=== PATIENT | female | born 1945 | race Caucasian/White ===

== ENCOUNTER 2018-05-15 17:32 | Emergency (ER) | payer MEDICARE, OTHER ==
[~2018-05-15] VITALS: Ht 152.4 cm; Wt 68.0 kg
[2018-05-15 17:43] VITALS: Ht 152.4 cm; Wt 68.0 kg
[2018-05-15 18:35] LABS: BASOPHIL % 0.4 % (0-2); PLATELET COUNT 209 x10^3mcL (130-400); RED CELL DISTRIBUTION WIDTH 13.6 % (11.5-14.5)
[2018-05-15 18:46] LABS: CALCIUM 8.4 mg/dL (8.5-10.1); CARBON DIOXIDE 28.6 mmol/L (21-32); CHLORIDE SERUM 105 mmol/L (98-107); CREATININE SERUM 0.7 mg/dL (0.6-1.0); GFR1 > 60 mL/min; GLUCOSE SERUM 106 mg/dL (74-106); POTASSIUM SERUM 3.4 mmol/L (3.5-5.1); SODIUM SERUM 140 mmol/L (136-145)
[2018-05-15 18:51] LABS: ALKALINE PHOSPHATASE 107 U/L (46-116); ALT/SGPT 22 U/L (14-59); AST/SGOT 17 U/L (15-37); BILIRUBIN TOTAL 0.1 mg/dL (0.20-1.00); CHOLESTEROL 157 mg/dL (<200); HDL CHOLESTEROL 47 mg/dL (40-60); LIPASE 298 IU/L (73-393); TOTAL PROTEIN, SERUM 7.6 g/dL (6.4-8.2)
[2018-05-15 19:04] LABS: ALBUMIN 3.2 g/dL (3.4-5.0)
[2018-05-15 19:52] LABS: UA SPECIFIC GRAVITY <=1.005 (1.005-1.035); microscopic required? YES; urine erythrocyte TRACE (NEGATIVE)
[2018-05-15 21:33] VITALS: BP 128/73
== END 2018-05-15 21:33 | disposition home or self-care (01) ==
LOC: ED 17:32
PROVIDERS: Emergency Medicine
DX: J98.01 Acute bronchospasm (principal); R06.03 Acute respiratory distress; Z90.49 Acquired absence of other specified parts of digestive tract; Z90.89 Acquired absence of other organs; Z90.710 Acquired absence of both cervix and uterus; Z91.041 Radiographic dye allergy status
CPT/HCPCS: J2930; J3490; J7030; J7613; Q0092

== ENCOUNTER 2019-07-11 17:56 | Inpatient (IN) | payer OTHER ==
[~2019-07-11] VITALS: Ht 149.9 cm; Wt 69.9 kg
[2019-07-11 18:34] VITALS: Ht 149.9 cm; Wt 69.9 kg
[2019-07-11 21:00] LABS: BASOPHIL % 0.3 % (0-2)
[2019-07-11 21:08] LABS: PLATELET COUNT 434 x10^3mcL (130-400); RED CELL DISTRIBUTION WIDTH 14.8 % (11.5-14.5)
[2019-07-11 21:18] LABS: ALBUMIN 3.7 g/dL (3.4-5.0); ALKALINE PHOSPHATASE 140 U/L (46-116); ALT/SGPT 23 U/L (14-59); AST/SGOT 31 U/L (15-37); BILIRUBIN TOTAL 0.29 mg/dL (0.20-1.00); CALCIUM 9.4 mg/dL (8.5-10.1); CARBON DIOXIDE 31.2 mmol/L (21-32); CHLORIDE SERUM 94 mmol/L (98-107); CREATININE SERUM 0.9 mg/dL (0.6-1.0); GLUCOSE SERUM 153 mg/dL (74-106); LIPASE 78 IU/L (73-393); SODIUM SERUM 137 mmol/L (136-145)
[2019-07-11 21:31] LABS: TOTAL PROTEIN, SERUM 8.9 g/dL (6.4-8.2)
[2019-07-11 21:32] LABS: POTASSIUM SERUM 2.2 mmol/L (3.5-5.1)
[2019-07-11 23:13] VITALS: BP 171/69
[2019-07-12 05:09] VITALS: BP 98/62
[2019-07-12 07:54] VITALS: BP 139/57
[2019-07-12 13:03] LABS: CALCIUM 8.5 mg/dL (8.5-10.1); CARBON DIOXIDE 31.8 mmol/L (21-32); CHLORIDE SERUM 101 mmol/L (98-107); CREATININE SERUM 0.8 mg/dL (0.6-1.0); GLUCOSE SERUM 114 mg/dL (74-106); MAGNESIUM 1.8 mg/dL (1.8-2.4); SODIUM SERUM 138 mmol/L (136-145)
[2019-07-12 13:15] LABS: POTASSIUM SERUM 2.7 mmol/L (3.5-5.1)
[2019-07-12 13:15] LABS: BASOPHIL % 0.5 % (0-2); RED CELL DISTRIBUTION WIDTH 14.5 % (11.5-14.5)
[2019-07-12 13:35] LABS: PLATELET COUNT 403 x10^3mcL (130-400)
[2019-07-12 15:30] VITALS: BP 156/70
[2019-07-12 20:09] VITALS: BP 156/76
[2019-07-13 05:14] VITALS: BP 148/67
[2019-07-13 06:14] LABS: CALCIUM 8.1 mg/dL (8.5-10.1); CARBON DIOXIDE 29.8 mmol/L (21-32); CHLORIDE SERUM 106 mmol/L (98-107); CREATININE SERUM 0.7 mg/dL (0.6-1.0); GLUCOSE SERUM 137 mg/dL (74-106); POTASSIUM SERUM 3.2 mmol/L (3.5-5.1); SODIUM SERUM 143 mmol/L (136-145)
[2019-07-13 06:22] LABS: BASOPHIL % 0.5 % (0-2); PLATELET COUNT 344 x10^3mcL (130-400)
[2019-07-13 06:36] LABS: RED CELL DISTRIBUTION WIDTH 14.6 % (11.5-14.5)
[2019-07-13 08:16] VITALS: BP 149/73
[2019-07-13 16:25] VITALS: BP 157/75
[2019-07-13 20:40] VITALS: BP 141/59
[2019-07-14 05:17] VITALS: BP 146/65
[2019-07-14 08:54] VITALS: BP 156/62
[2019-07-14 16:44] VITALS: BP 119/55
[2019-07-14 17:18] VITALS: BP 119/55
[2019-07-14 17:54] VITALS: BP 119/55
== END 2019-07-14 18:45 | disposition home or self-care (01) | DRG 641 ==
LOC: ED 17:56 → MU 21:33
PROVIDERS: Emergency Medicine; Internal Medicine Pulmonary Disease; ADMIT Internal Medicine Pulmonary Disease
DX: E87.6 Hypokalemia (principal); K43.6 Other and unspecified ventral hernia with obstruction, without gangrene; R11.2 Nausea with vomiting, unspecified; I10 Essential (primary) hypertension; Z68.31 Body mass index [BMI] 31.0-31.9, adult; Z90.49 Acquired absence of other specified parts of digestive tract
CPT/HCPCS: G0378; J1650; J2270; J2405; J3480; J7030; Q0092; Q9967